=== PATIENT | male | born 1960 | race Caucasian/White ===

== ENCOUNTER 2021-10-26 12:11 | Outpatient (REF) | payer OTHER, SELFPAY ==
[2021-10-26 18:49] LABS: Alanine Aminotransferase 38 U/L (0-40); Alkaline Phosphatase 101 U/L (39-117); Anion Gap 12 (12-20); Aspartate Amino Transferase 27 U/L (5-37); Bilirubin Direct 0.3 mg/dL (0.0-0.5); Bilirubin Total 0.8 mg/dL (0.0-1.0); Blood Urea Nitrogen 26 mg/dL (9-16); Calcium 9.1 mg/dL (8.4-10.2); Carbon Dioxide 25 mmol/L (22-29); Chloride 106 mmol/L (96-108); Estimated Glomerular Filt Rate 57; Glucose Random 100 mg/dL (60-115); Potassium 4.8 mmol/L (3.3-5.1); Sodium 138 mmol/L (135-145); Total Protein 6.3 g/dL (6.5-8.0)
== END 2021-10-26 12:12 | disposition home or self-care (01) ==
LOC: HO.MANLDS 12:11
PROVIDERS: PCP Internal Medicine; Visit Provider Internal Medicine
DX: R94.5 Abnormal results of liver function studies (principal)
CPT/HCPCS: 36415; 80053; 82248

== ENCOUNTER 2023-11-16 10:09 | Outpatient (REF) | payer OTHER, SELFPAY | END 2023-11-16 10:10 | disposition home or self-care (01) | LOC: HO.MANLDS 10:09 | PROVIDERS: Visit Provider Internal Medicine | DX: Z12.5 Encounter for screening for malignant neoplasm of prostate (principal); E78.00 Pure hypercholesterolemia, unspecified; N40.0 Benign prostatic hyperplasia without lower urinary tract symptoms; I10 Essential (primary) hypertension | CPT/HCPCS: 36415; 80053; 80061; 84153; 85025 ==

== ENCOUNTER 2024-03-04 14:13 | Outpatient (REF) | payer OTHER, SELFPAY ==
[2024-03-10 01:08] LABS: Testosterone, Total 295 ng/dL (250-1100)
== END 2024-03-04 14:14 | disposition home or self-care (01) ==
LOC: HO.MANLDS 14:13
PROVIDERS: Visit Provider Internal Medicine
DX: R53.83 Other fatigue (principal)
CPT/HCPCS: 36415; 84403

== ENCOUNTER 2024-04-16 15:22 | Outpatient (REF) | payer OTHER, SELFPAY ==
[2024-04-21 00:33] LABS: Testosterone, Total 388 ng/dL (250-1100)
== END 2024-04-16 15:23 | disposition home or self-care (01) ==
LOC: HO.MANLDS 15:22
PROVIDERS: Visit Provider Internal Medicine
DX: R89.1 Abnormal level of hormones in specimens from other organs, systems and tissues (principal)
CPT/HCPCS: 36415; 84403